=== PATIENT | female | born 1950 | race Caucasian/White ===

== ENCOUNTER → 2018-06-08 09:36 | Outpatient (CLI) | payer OTHER, SELFPAY | PROVIDERS: Visit Provider Internal Medicine | DX: Z13.820 Encounter for screening for osteoporosis (principal); Z78.0 Asymptomatic menopausal state | CPT/HCPCS: 77080 ==

== ENCOUNTER → 2019-02-11 13:06 | Outpatient (ROUT) | payer OTHER, SELFPAY ==
[2019-02-11 13:44] LABS: Alanine Aminotransferase 27 IU/L (<35); Albumin 4.5 g/dL (3.5-5.0); Albumin Globulin Ratio 1.4 (1.0-2.8); Alkaline Phosphatase 56 U/L (38-126); Aspartate Aminotransferase 32 IU/L (14-36); BUN Creatinine Ratio 28.3 (6-22); Bilirubin Total 0.9 mg/dL (0.2-1.3); Blood Urea Nitrogen 17 mg/dL (7-17); Calcium 9.4 mg/dL (8.4-10.2); Carbon Dioxide 29 mmol/L (22-32); Chloride 98 mmol/L (98-107); Cholesterol 199 mg/dL (140-199); Estimated Glomerular Filt Rate > 60.0 mL/min (>60); Globulin 3.3 g/dL (1.7-4.1); Glucose 95 mg/dL (80-110); HDL Cholesterol 49 mg/dL (40-60); HEMOLYSIS 16 (0-50); LDL Cholesterol Calculated 131 mg/dL (<100); Potassium 4.2 mmol/L (3.4-5.1); Sodium 136 mmol/L (137-145); Total Protein 7.8 g/dL (6.3-8.2); Triglycerides 95 mg/dL (35-150)
== END ==
PROVIDERS: Visit Provider Internal Medicine
DX: Z13.220 Encounter for screening for lipoid disorders (principal); I10 Essential (primary) hypertension
CPT/HCPCS: 80053; 80061

== ENCOUNTER → 2019-07-28 07:02 | Outpatient (CLI) | payer MEDICARE, SELFPAY ==
[2019-07-28 08:38] LABS: Alanine Aminotransferase 41 IU/L (<35); Aspartate Aminotransferase 45 IU/L (14-36); Cholesterol 172 mg/dL (140-199); HDL Cholesterol 60 mg/dL (40-60); LDL Cholesterol Calculated 97 mg/dL (<100); Triglycerides 77 mg/dL (35-150)
[2019-07-28 17:38] LABS: Hep C Virus Ab w/Reflex Quant NEGATIVE s/c (NEGATIVE)
== END ==
PROVIDERS: PCP Internal Medicine; Referring Provider Internal Medicine; Visit Provider Internal Medicine
DX: Z11.59 Encounter for screening for other viral diseases (principal); E78.5 Hyperlipidemia, unspecified
CPT/HCPCS: 36415; 80061; 84450; 84460; 86803

== ENCOUNTER 2020-09-06 08:53 | Inpatient (IN) | payer MEDICARE, OTHER, SELFPAY ==
[2020-09-06] VITALS (10 sets, daily range): BP systolic 107–190; BP diastolic 58–92; PULSE 59–64; RESP 16–41; TEMP 36.5–37.1; O2SAT 91–100; BMI 25.7
--- NOTE | 2020-09-06 09:18 | ED_ITS ---
HPI - Syncope General Chief Complaint: Syncope Stated Complaint: low potassium - sent by doc Time Seen by Provider: 09/06/20 09:07 Source: patient and family Mode of arrival: Ambulatory Limitations: no limitations History of Present Illness HPI narrative: This is a 70-year-old female comes emergency department with complaint of low potassium. She was told her number is in the 120s which I suspect is her sodium level. After further discussion she may have had some electrolyte abnormalities in general. Patient states she has felt unwell for the past week. Thursday she had an episode where she felt very dizzy, she tried to get to her bed she did not quite make it and she sounds like she had a syncopal episode. Patient felt like she was going to pass out. She woke up on the ground. She states she had a small amount of blood on the back of her head. Patient states she has continued to have some lightheadedness and dizziness. She has checked her blood pressure several times and had systolics in the 80s at times and other times normal level blood pressure. Patient has just felt off and sort of fuzzy. Patient denies any headache or neck pain. She denies any chest pain or pressure, no shortness of breath. No active nausea but has had some intermittently. She denies any numbness, tingling or weakness that is new. She denies any new GI or urinary symptoms but has felt off balance and like it is difficult to walk. Patient states she has been hanging onto furniture and the jack. She does take medicine including lisinopril, hydrochlorothiazide, amlodipine, rosuvastatin, mirtazapine for PTSD and insomnia and Co Q10. Her primary care physician had her stop her HCTZ in her amlodipine and she did not take it last night. She has had history tonsillectomy, tubal ligation with no other surgeries. No tobacco, she drinks several alcoholic drinks nightly, no illicit. She has seasonal allergies but denies drug allergies. Dr. Aleah Diallo is her PCP. Related Data Home Medications Medication Instructions Recorded Confirmed fluticasone propionate 50 1 spray INTRANASAL DAILY PRN 09/06/20 09/06/20 mcg/actuation nasal spray,suspension (Flonase Allergy Relief) lisinopril 40 mg tablet 40 mg PO DAILY 09/06/20 09/06/20 mirtazapine 15 mg tablet 15 mg PO BEDTIME 09/06/20 09/06/20 rosuvastatin 5 mg tablet 5 mg PO BEDTIME 09/06/20 09/06/20 Allergies Allergy/AdvReac Type Severity Reaction Status Date / Time No Known Drug Allergies Allergy Verified 09/06/20 10:05 Review of Systems Review of Systems ROS Unobtainable: All systems reviewed & are unremarkable except as noted in HPI and below Patient History Medical History (Updated 09/06/20 @ 10:51 by Pam Lauren DO) Dyslipidemia Hypertension Insomnia PTSD (post-traumatic stress disorder) Surgical History (Updated 09/06/20 @ 09:25 by Pam Lauren DO) H/O tubal ligation History of tonsillectomy Social History household members: none Smoking Status: Never smoker Smoking Status: Never smoker alcohol intake frequency: 3 or more drinks per day Last Alcoholic Drink: last week Substance Use Type: does not use Exam Narrative Exam Narrative: GEN: well nourished, well appearing female, alert and oriented x 3, patient appears to be in mild distress. HEENT: Atraumatic except for small abrasion on the posterior scalp., pupils are equal round reactive to light, extraocular movements are intact, nares are clear, Throat is clear without any exudates, erythema, tonsillar enlargement or uvular deviation, no facial droop. HEART: Regular rate and rhythm without murmur, clicks, rubs. Pulses are equal in upper and lower extremities LUNGS:Lungs clear to auscultation, no wheezes, rales, crackles, chest moves symmetrically ABD:bowel sounds normal, soft, non-tender, no guarding, rebound, rigidity, no masses noted, no hepatosplenomegaly :No CVA tenderness MSCL: Non-tender, no muscle atrophy, muscles strength 5/5 upper and lower extremities, full range of motion, normal gait NEURO:CN 2-12 intact, sensation normal, reflexes 2/4 upper and lower extremities SKIN: Other than abrasion noted on posterior scalp. No other skin changes noted. Initial Vital Signs Initial Vital Signs: Vital Signs Temperature 98.5 F 09/06/20 10:00 Pulse Rate 61 09/06/20 10:00 Respiratory Rate 18 09/06/20 10:00 Blood Pressure 190/88 H 09/06/20 10:00 Pulse Oximetry 100 09/06/20 10:00 Course Orders Ordered: Acetaminophen (Acetaminophen 325 Mg Tablet) 650 mg PO Q6HR PRN PRN Reason: Fever/Mild Pain (1-3) Atorvastatin Calcium (Atorvastatin 20 Mg Tablet) 10 mg PO BEDTIME TONY Enoxaparin Sodium (Enoxaparin 40 Mg/0.4 Ml Syringe) 40 mg SUBCUT DAILY TONY Fluticasone Propionate (Fluticasone 120 [place]/16 Gm [place].Susp) 1 spray NASAL DAILY PRN PRN Reason: Allergy Symptoms Sodium Chloride (Normal Saline 0.9%) 1,000 mls @ 75 mls/hr IV CONT [facility] Last Admin: 09/06/20 17:32 Dose: 125 mls/hr Documented by: Infusion: 09/06/20 17:32 Dose: 125 mls/hr Documented by: Admin: 09/06/20 13:47 Dose: 125 mls/hr Documented by: MIREYA POTASSIUM CHLORIDE IN WATER (Potassium Cl 10 Meq/100 Ml Nicole) 10 meq in 100 mls @ 100 mls/hr IV Q1H [facility] Stop: 09/07/20 01:14 Mirtazapine (Mirtazapine 15 Mg Tablet) 15 mg PO BEDTIME TONY Naloxone HCl (Naloxone 0.4 Mg/Ml Vial) 0.2 mg IV Q2MIN PRN PRN Reason: Opiate Reversal Potassium Chloride (Potassium Chloride 20 Meq Tab) 40 meq PO TIDWM [facility] Last Admin: 09/06/20 16:43 Dose: 40 meq Documented by: RICH Discontinued Medications Sodium Chloride (Normal Saline 0.9%) 1,000 mls @ 150 mls/hr IV CONT [facility] Last Admin: 09/06/20 10:20 Dose: 150 mls/hr Documented by: [email or web address] POTASSIUM CHLORIDE IN WATER (Potassium Cl 10 Meq/100 Ml Nicole) 10 meq in 100 mls @ 100 mls/hr IV Q1H TONY Stop: 09/06/20 14:14 Last Admin: 09/06/20 16:44 Dose: 100 mls/hr Documented by: Infusion: 09/06/20 16:16 Dose: 100 mls/hr Documented by: Admin: 09/06/20 13:47 Dose: 100 mls/hr Documented by: Infusion: 09/06/20 12:51 Dose: 100 mls/hr Documented by: Admin: 09/06/20 11:51 Dose: 100 mls/hr Documented by: Infusion: 09/06/20 11:50 Dose: 0 mls/hr Documented by: Admin: 09/06/20 10:21 Dose: 100 mls/hr Documented by: HOMER Potassium Chloride (Potassium Chloride 20 Meq/15 Ml Udc) 40 meq PO NOW ONE Stop: 09/06/20 10:03 Last Admin: 09/06/20 10:21 Dose: 40 meq Documented by: HOMER Vital Signs Vital signs: Vital Signs - 8 hr 09/06/20 10:00 Temperature 98.5 F Pulse Rate 61 Respiratory Rate 18 Blood Pressure 190/88 H Pulse Oximetry 100 MDM - Syncope Lab Data Result diagrams: 09/06/20 09:19 09/06/20 16:09 Labs: Lab Results 09/06/20 09/06/20 09/06/20 Range/Units 09:19 09:19 09:19 WBC 4.4 L (4.5-11.0) X10^3/uL RBC 3.60 L (4.0-5.2) X10^6/uL Hgb 11.5 L (12.0-16.0) g/dL Hct 32.5 L (36-46) % MCV 90.2 (80-100) fL MCH 32.0 (26-34) PG MCHC 35.5 (30-36) % RDW 12.1 (11.6-14.8) % Plt Count 305 (150-400) X10^3/uL Neut % (Auto) 72.5 (50-75) % Lymph % (Auto) 15.1 L (25-40) % Lawrence % (Auto) 10.3 (3-14) % Eos % (Auto) 1.4 L (2-4) % Baso % (Auto) 0.7 (0-2) % Neut # (Auto) 3200 (8479-0972) /uL Lymph # (Auto) 700 L (8247-0496) /uL Lawrence # (Auto) 500 (0-900) /uL Eos # (Auto) 100 (0-450) /uL Baso # (Auto) 0 (0-100) /uL PT (10.1-12.7) SECONDS INR (0.9-1.3) APTT (26.4-36.2) SECONDS Sodium 123 L (137-145) mmol/L Potassium 2.4 L* (3.4-5.1) mmol/L Chloride 82 L (98-107) mmol/L Carbon Dioxide 31 (22-32) mmol/L BUN 25 H (7-17) mg/dL Creatinine 0.64 (0.52-1.04) mg/dL Estimated GFR > 60.0 (>60) mL/min BUN/Creatinine Ratio 39.1 H (6-22) Glucose 125 H (80-110) mg/dL Calcium 9.5 (8.4-10.2) mg/dL Magnesium 2.1 (1.6-2.3) mg/dL Total Bilirubin 0.6 (0.2-1.3) mg/dL AST 48 H (14-36) IU/L ALT 38 H (<35) IU/L Alkaline Phosphatase 64 (38-126) U/L Total Creatine Kinase 184 H (30-135) U/L CK-MB (CK-2) 5.02 H (<2.37) ng/mL CK-MB (CK-2) Rel Index 2.7 (1.5-5.0) % Troponin I < 0.012 (0.01-0.034) ng/mL NT-Pro-B Natriuret Pep 74 (<125) pg/mL Total Protein 9.1 H (6.3-8.2) g/dL Albumin 4.7 (3.5-5.0) g/dL Globulin 4.4 H (1.7-4.1) g/dL Albumin/Globulin Ratio 1.1 (1.0-2.8) TSH 1.08 (0.47-4.68) uIU/mL Ethyl Alcohol ( - 10) mg/dL SARS-CoV-2 (PCR) (Negative) 09/06/20 09/06/20 09/06/20 Range/Units 09:19 10:10 10:10 WBC (4.5-11.0) X10^3/uL RBC (4.0-5.2) X10^6/uL Hgb (12.0-16.0) g/dL Hct (36-46) % MCV (80-100) fL MCH (26-34) PG MCHC (30-36) % RDW (11.6-14.8) % Plt Count (150-400) X10^3/uL Neut % (Auto) (50-75) % Lymph % (Auto) (25-40) % Lawrence % (Auto) (3-14) % Eos % (Auto) (2-4) % Baso % (Auto) (0-2) % Neut # (Auto) (5453-6283) /uL Lymph # (Auto) (5145-8636) /uL Lawrence # (Auto) (0-900) /uL Eos # (Auto) (0-450) /uL Baso # (Auto) (0-100) /uL PT 12.0 (10.1-12.7) SECONDS INR 1.1 (0.9-1.3) APTT 27 (26.4-36.2) SECONDS Sodium (137-145) mmol/L Potassium (3.4-5.1) mmol/L Chloride (98-107) mmol/L Carbon Dioxide (22-32) mmol/L BUN (7-17) mg/dL Creatinine (0.52-1.04) mg/dL Estimated GFR (>60) mL/min BUN/Creatinine Ratio (6-22) Glucose (80-110) mg/dL Calcium (8.4-10.2) mg/dL Magnesium (1.6-2.3) mg/dL Total Bilirubin (0.2-1.3) mg/dL AST (14-36) IU/L ALT (<35) IU/L Alkaline Phosphatase (38-126) U/L Total Creatine Kinase (30-135) U/L CK-MB (CK-2) (<2.37) ng/mL CK-MB (CK-2) Rel Index (1.5-5.0) % Troponin I (0.01-0.034) ng/mL NT-Pro-B Natriuret Pep (<125) pg/mL Total Protein (6.3-8.2) g/dL Albumin (3.5-5.0) g/dL Globulin (1.7-4.1) g/dL Albumin/Globulin Ratio (1.0-2.8) TSH (0.47-4.68) uIU/mL Ethyl Alcohol < 10 ( - 10) mg/dL SARS-CoV-2 (PCR) (Negative) 09/06/20 Range/Units 11:17 WBC (4.5-11.0) X10^3/uL RBC (4.0-5.2) X10^6/uL Hgb (12.0-16.0) g/dL Hct (36-46) % MCV (80-100) fL MCH (26-34) PG MCHC (30-36) % RDW (11.6-14.8) % Plt Count (150-400) X10^3/uL Neut % (Auto) (50-75) % Lymph % (Auto) (25-40) % Lawrence % (Auto) (3-14) % Eos % (Auto) (2-4) % Baso % (Auto) (0-2) % Neut # (Auto) (8805-8621) /uL Lymph # (Auto) (7420-0456) /uL Lawrence # (Auto) (0-900) /uL Eos # (Auto) (0-450) /uL Baso # (Auto) (0-100) /uL PT (10.1-12.7) SECONDS INR (0.9-1.3) APTT (26.4-36.2) SECONDS Sodium (137-145) mmol/L Potassium (3.4-5.1) mmol/L Chloride (98-107) mmol/L Carbon Dioxide (22-32) mmol/L BUN (7-17) mg/dL Creatinine (0.52-1.04) mg/dL Estimated GFR (>60) mL/min BUN/Creatinine Ratio (6-22) Glucose (80-110) mg/dL Calcium (8.4-10.2) mg/dL Magnesium (1.6-2.3) mg/dL Total Bilirubin (0.2-1.3) mg/dL AST (14-36) IU/L ALT (<35) IU/L Alkaline Phosphatase (38-126) U/L Total Creatine Kinase (30-135) U/L CK-MB (CK-2) (<2.37) ng/mL CK-MB (CK-2) Rel Index (1.5-5.0) % Troponin I (0.01-0.034) ng/mL NT-Pro-B Natriuret Pep (<125) pg/mL Total Protein (6.3-8.2) g/dL Albumin (3.5-5.0) g/dL Globulin (1.7-4.1) g/dL Albumin/Globulin Ratio (1.0-2.8) TSH (0.47-4.68) uIU/mL Ethyl Alcohol ( - 10) mg/dL SARS-CoV-2 (PCR) Negative (Negative) Urine Dip Bedside Urine Glucose Negative Bedside Urine Bilirubin - Negative Bedside Urine Ketone - Negative Urine Specific [place] 1.015 Bedside Urine Occult Blood - Negative Bedside Urine pH 6.5 Bedside Urine Protein - Negative Bedside Urine Urobilinogen - Negative Bedside Urine Nitrite - Negative Bedside Urine Leukocytes - Negative Esterase ECG Data Attestation: I personally reviewed and interpreted this ECG as follows: Prior ECG tracings: not available for review Interpretation: Sinus rhythm, incomplete right bundle branch. Rate of 61 OH 202, QRS of 106 and QTC of 446. No acute ST elevation or depression noted. MDM Narrative Medical decision making narrative: This is a 70-year-old female who comes to the emergency department with complaint of not feeling herself, patient was sent by her primary care for electrolyte abnormalities. Patient is found to have hyponatremia and hypokalemia here in the department. She does have an elevated BUN there may be an association with some dehydration but patient is also on lisinopril as well as hydrochlorothiazide which this may also be causing some of her symptoms. Patient case was discussed with Dr. Méndez who accepts for admission. Discharge Plan Departure Patient Disposition: Admitted As Inpatient Clinical Impression: Hyponatremia, Hypokalemia Admit Date/Time: 09/06/20 11:30 Admit Provider: Deejay Méndez
--- NOTE | 2020-09-06 09:20 | DI.RAD.S_ITS ---
PROCEDURE: XR CHEST 1V INDICATIONS: Syncope, electrolyte abnormalities TECHNIQUE: One view of the chest was acquired. COMPARISON: None. FINDINGS: Surgical changes and devices: None. Lungs and pleura: Lungs are clear. No pleural effusions or pneumothorax. Mediastinum: Mediastinal contours appear normal. Heart size is normal. Bones and chest wall: No suspicious bony lesions. Overlying soft tissues appear unremarkable. IMPRESSION: No acute cardiopulmonary process demonstrated radiographically. Dictated by: Demetrio Light M.D. on 09/06/2020 at 9:41 Approved by: Demetrio Light M.D. on 09/06/2020 at 9:44
[2020-09-06 09:28] LABS: Add Manual Diff / Slide Review NO; Basophils Absolute Auto 0 /uL (0-100); Basophils Percent Auto 0.7 % (0-2); Eosinophils Absolute Auto 100 /uL (0-450); Eosinophils Percent Auto 1.4 % (2-4); Hematocrit 32.5 % (36-46); Hemoglobin 11.5 g/dL (12.0-16.0); Lymphocytes Absolute Auto 700 /uL (1100-4500); Lymphocytes Percent Auto 15.1 % (25-40); Mean Corpuscular HGB Conc 35.5 % (30-36); Mean Corpuscular Volume 90.2 fL (80-100); Monocytes Absolute Auto 500 /uL (0-900); Monocytes Percent Auto 10.3 % (3-14); Neutrophils Absolute Auto 3200 /uL (1500-7000); Neutrophils Percent Auto 72.5 % (50-75); Platelet Count 305 X10^3/uL (150-400); Red Cell Distribution Width 12.1 % (11.6-14.8); White Blood Cell Count 4.4 X10^3/uL (4.5-11.0)
[2020-09-06 09:41] LABS: Alanine Aminotransferase 38 IU/L (<35); Albumin 4.7 g/dL (3.5-5.0); Albumin Globulin Ratio 1.1 (1.0-2.8); Alkaline Phosphatase 64 U/L (38-126); Aspartate Aminotransferase 48 IU/L (14-36); BUN Creatinine Ratio 39.1 (6-22); Bilirubin Total 0.6 mg/dL (0.2-1.3); Blood Urea Nitrogen 25 mg/dL (7-17); Calcium 9.5 mg/dL (8.4-10.2); Carbon Dioxide 31 mmol/L (22-32); Chloride 82 mmol/L (98-107); Creatine Kinase 184 U/L (30-135); Estimated Glomerular Filt Rate > 60.0 mL/min (>60); Ethanol (ETOH) < 10 mg/dL; Globulin 4.4 g/dL (1.7-4.1); Glucose 125 mg/dL (80-110); HEMOLYSIS 17 (0-50); Magnesium 2.1 mg/dL (1.6-2.3); Sodium 123 mmol/L (137-145); Total Protein 9.1 g/dL (6.3-8.2)
[2020-09-06 09:53] LABS: NT-proBNP (BNP-Adult 18+) 74 pg/mL (<125); Troponin I < 0.012 ng/mL (0.01-0.034)
[2020-09-06 09:56] LABS: CKMB % Relative Index 2.7 % (1.5-5.0); Creatine Kinase MB 5.02 ng/mL (<2.37); Potassium 2.4 mmol/L (3.4-5.1)
--- NOTE | 2020-09-06 10:04 | DI.CT.S_ITS ---
PROCEDURE: CT HEAD/BRAIN WO CON INDICATIONS: sent for electrolyte abnormalties TECHNIQUE: Noncontrast 4.5 mm thick angled axial sections acquired from the foramen magnum to the vertex, with coronal and sagittal reformats. For radiation dose reduction, the following was used: automated exposure control, adjustment of mA and/or kV according to patient size. COMPARISON: None. FINDINGS: Image quality: Excellent. CSF spaces: Basal cisterns are patent. No extra-axial fluid collections. The ventricles are symmetric in size and shape. Brain: No intracranial bleeds or masses. There is minimal cerebral volume loss for age, with resultant ventricular and sulcal prominence. There are mild periventricular and deep white matter chronic small vessel ischemic changes. There is intracranial internal carotid artery atherosclerosis. Skull and face: Calvarium and visualized facial bones appear intact, without suspicious lesions. Sinuses: Visualized sinuses and mastoids are clear. IMPRESSION: 1. No acute intracranial abnormalities. Dictated by: Fernando Martinez M.D. on 09/06/2020 at 10:00 Approved by: Fernando Martinez M.D. on 09/06/2020 at 10:02
[2020-09-06 10:16] LABS: Thyroid Stimulating Hormone 1.08 uIU/mL (0.47-4.68)
[2020-09-06] MEDS: SODIUM CHLORIDE 0.9% 1,000 ML 150 ML IV (10:20)
[2020-09-06] MEDS: POTASSIUM CHLORIDE IN WATER 10 MEQ/100 ML PIGGYBACK 100 MEQ IV ×6 (10:21→22:49)
[2020-09-06] MEDS: POTASSIUM CHLORIDE 20 MEQ/15 ML UDC 40 MEQ PO (10:21)
[2020-09-06 10:25] LABS: PTT Partial Thromboplastin Tim 27 SECONDS (26.4-36.2)
[2020-09-06 10:29] LABS: INR 1.1 (0.9-1.3)
[2020-09-06 12:20] LABS: COVID19 - ADMIT (NP swab/PCR) Negative (Negative)
--- NOTE | 2020-09-06 13:33 | DI.ECHO.S_ITS ---
[facility]---------+ [facility] +---------+ : : [address] : : : : [id number] : : : : Phone: [phone] Echocardiogram Report + + :Name: GELACIO MAST Study Date: 09/06/2020 Height: 65 in : :[facility] ReadingLocation: Weight: 153 lb : : Gender: Female BSA: 1.8 m2 : :: 1950 Age: 70 yrs BP: 159/84 mmHg: :Reason For Study: Syncope : :Ordering Physician: : :ALEXUS MANN Performed By: Efraín Steve : :Referring: ALEXUS MANN : + + Interpretation Summary The ejection fraction is estimated to be 65-70%. There is mild tricuspid regurgitation. The right ventricular systolic pressure is estimated to be at least 29 mmHg based on an estimated right atrial pressure of 3 mm Hg. Procedure: A two-dimensional transthoracic echocardiogram with color flow and Doppler was performed. The study quality was technically adequate. Comparison is made with the echocardiogram of 02/27/2015. Left Ventricle: The left ventricle is normal in size. Left ventricular systolic function is normal. The ejection fraction is estimated to be 65-70%. There are no focal wall motion abnormalities. Diastolic parameters suggest a relaxation abnormality of the left ventricle, consistent with probable normal filling pressures. Right Ventricle: The right ventricle is normal in size and function. Atria: The left atrium is moderately dilated. The right atrium is mildly dilated. There is no Doppler evidence for an interatrial shunt. Mitral Valve: The mitral valve is normal in structure and function. There is trace mitral regurgitation. Aortic Valve: The aortic valve is normal in structure and function. No aortic regurgitation is present. Tricuspid Valve: The tricuspid valve is normal in structure and function. There is mild tricuspid regurgitation. The right ventricular systolic pressure is estimated to be at least 29 mmHg based on an estimated right atrial pressure of 3 mm Hg. Pulmonic Valve: The pulmonic valve is not well seen, but is grossly normal. There is mild pulmonic regurgitation. Great Vessels: The aortic root is normal size. The ascending aorta is moderately enlarged. The IVC is of normal diameter and collapses greater than 50% with a sniff. This suggests a low right atrial pressure of 3 mm Hg. Pericardium/ Pleura There is no pericardial effusion. There is no pleural effusion. MMode/2D Measurements & Calculations LVIDd: 4.6 cm LVOT diam: 2.2 cm LVIDs: 2.6 cm Ao root diam: 3.1 cm FS: 42.4 % asc Aorta Diam: 4.1 cm IVSd: 1.2 cm LVPWd: 0.88 cm LV louis. diameter/BSA (cm/m^2): 2.6 LV sys. diameter/BSA (cm/m^2): 1.5 LA A2 area: 21.1 cm2 RA long axis: 5.1 cm LA A4 area: 23.2 cm2 RA area: 20.4 cm2 LA length (vol): 5.4 cm RA vol: 68.9 ml LA vol: 76.6 ml RA : 39.0 ml/m2 LA vol index: 43.4 ml/m2 RVD1 (basal): 3.0 cm TAPSE: 3.1 cm Doppler Measurements & Calculations Ao V2 max: 171.2 cm/sec LVOT Max Jeevan: 166.0 cm/sec Ao V2 mean: 116.9 cm/sec LV V1 max P.0 mmHg Ao max P.7 mmHg LV V1 VTI: 32.3 cm Ao mean P.3 mmHg ABHI(I,D): 3.5 cm2 Ao V2 VTI: 34.8 cm ABHI(V,D): 3.7 cm2 sev ratio: 0.93 ABHI indexed to BSA (cm^2/m^2): 2.0 MV E max jeevan: 48.1 cm/sec TR max jeevan: 256.1 cm/sec MV A max jeevan: 74.5 cm/sec TR max P.2 mmHg MV E/A: 0.65 PA V2 max: 118.3 cm/sec Med Peak E' Jeevan: 7.4 cm/sec PA V2 mean: 79.5 cm/sec E/E' med: 6.5 PA mean P.8 mmHg Lat Peak E' Jeevan: 8.5 cm/sec PA pr(Accel): 34.4 mmHg E/E' lat: 5.6 E/e' average: 6.1 MV dec time: 0.36 sec SV(LVOT): 122.9 ml Reading Physician:03:58 PM
[2020-09-06] MEDS: SODIUM CHLORIDE 0.9% 1,000 ML 125 ML IV ×2 (13:47→17:32)
--- NOTE | 2020-09-06 14:26 | PC.NURSE ---
Pt to room 205 via w/c from ER-able to transfer to bed independently. Pt denies pain-states she had been feeling weak and dizzy. Notified Pt that the bed alarm on for safety and assistance when getting up. Oriented Pt to room, call light, tv controls and bed controls. Pt is currently eating a sandwich and drinking water and denies needs at this time.
[2020-09-06 16:33] LABS: Blood Urea Nitrogen 20 mg/dL (7-17); Carbon Dioxide 31 mmol/L (22-32); Chloride 92 mmol/L (98-107); Estimated Glomerular Filt Rate > 60.0 mL/min (>60); Glucose 116 mg/dL (80-110); HEMOLYSIS < 15 (0-50); Sodium 129 mmol/L (137-145)
[2020-09-06 16:35] LABS: Potassium 2.6 mmol/L (3.4-5.1)
[2020-09-06] MEDS: POTASSIUM CHLORIDE 20 MEQ TAB 40 MEQ PO (16:43)
--- NOTE | 2020-09-06 18:32 | PC.NURSE ---
PRIOR TO ORAL AND #4 [facility] DRAWN K+2.6 MADE AWARE
--- NOTE | 2020-09-06 21:11 | P.HP_ITS ---
History of Present Illness History of Present Illness Date Patient Seen: 09/06/20 Time Patient Seen: 13:00 Chief complaint: low potassium - sent by doc Narrative: Ms Acevedo is a 70W with PMH HTN, HL who comes in to the hospital with abnormal labs. She notes that she has felt unwell for a week. She has noted that a couple days ago she possibly passed out. She has had low blood pressures intermittently. She has been fuzzy mentally, and generally weak. She feels imb alanced and that it is difficult to walk. Apparently she was just told to stop amlodipine and HCTZ for these issues. However, she was called in today for critically low electrolytes. She has 2-3 glasses of wine usually every day. She has also noticed a feeling of being flushed and a headache. In the ED, vitals were normal except for hypertension with blood pressure 190s/80s. Labs notable for WBC 4.4, hgb 11.5, sodium 123, K 2.4, chloride 82, creatinine 0.64. TSH ok, alcohol negative. She was given IV fluids and potassium supplementation. Head CT showed no acute process. She was admitted for further treatment and evaluation. Family history: Father-CHF Mother-DM Patient History Medical History Dyslipidemia Hypertension Insomnia PTSD (post-traumatic stress disorder) Surgical History H/O tubal ligation History of tonsillectomy Family & Social History Social History: household members none Prior Living Arrangements House Safety & Behavioral: Feels Safe in Current Yes Environment Been Physically Hurt or No Threatened By a Person Suicidal Ideation Description None Suicide Plan Description No Plan Tobacco & Substance use: Smoking Status Never smoker alcohol intake frequency 3 or more drinks per day Substance Use Type does not use Meds Home Medications and Allergies Home Medications Medication Instructions Recorded Confirmed Type fluticasone propionate 50 1 spray INTRANASAL DAILY PRN 09/06/20 09/06/20 History mcg/actuation nasal spray,suspension (Flonase Allergy Relief) lisinopril 40 mg tablet 40 mg PO DAILY 09/06/20 09/06/20 History mirtazapine 15 mg tablet 15 mg PO BEDTIME 09/06/20 09/06/20 History rosuvastatin 5 mg tablet 5 mg PO BEDTIME 09/06/20 09/06/20 History Allergies Allergy/AdvReac Type Severity Reaction Status Date / Time No Known Drug Allergies Allergy Verified 09/06/20 10:05 Review of Systems Review of Systems Narrative: 14 systems reviewed and negative aside from what is noted in HPI Exam Vital Signs (past 8 hours): - 09/06/20 13:15 09/06/20 14:32 09/06/20 15:46 Temperature 98.7 F 98.2 F Pulse Rate 62 64 60 Respiratory Rate 18 16 20 Blood Pressure 142/78 H 159/84 H 107/58 L Pulse Oximetry 99 99 91 09/06/20 19:29 Temperature 97.7 F Pulse Rate 63 Respiratory Rate 18 Blood Pressure 116/67 Pulse Oximetry 97 Oxygen Delivery Method Room Air Oxygen Flow Rate 0 Narrative Exam Narrative: GEN: no acute distress, awake and alert, but mildly confused HEENT: dry mucous membranes, PERRL CV: regular rate and rhythm with no mumurs PULM: clear bilaterally, no wheezes, rhonchi, rales ABD: soft, nontender, nondistended, no organomegaly, normal bowel sounds EXT: warm and well perfused with no edema NEURO: AAOx3, moving all extremities, slight slurred speech, tangential thought SKIN: no rashes noted PSYCH: pleasant Objective Labs Result Diagrams: 09/06/20 09:19 09/06/20 16:09 Labs: Laboratory Results - last 24 hr 09/06/20 09/06/20 09/06/20 09:19 09:19 09:19 WBC 4.4 L RBC 3.60 L Hgb 11.5 L Hct 32.5 L MCV 90.2 MCH 32.0 MCHC 35.5 RDW 12.1 Plt Count 305 Neut % (Auto) 72.5 Lymph % (Auto) 15.1 L Mcdonald % (Auto) 10.3 Eos % (Auto) 1.4 L Baso % (Auto) 0.7 Neut # (Auto) 3200 Lymph # (Auto) 700 L Mcdonald # (Auto) 500 Eos # (Auto) 100 Baso # (Auto) 0 PT INR APTT Sodium 123 L Potassium 2.4 L* Chloride 82 L Carbon Dioxide 31 BUN 25 H Creatinine 0.64 Estimated GFR > 60.0 BUN/Creatinine Ratio 39.1 H Glucose 125 H Calcium 9.5 Magnesium 2.1 Total Bilirubin 0.6 AST 48 H ALT 38 H Alkaline Phosphatase 64 Total Creatine Kinase 184 H CK-MB (CK-2) 5.02 H CK-MB (CK-2) Rel Index 2.7 Troponin I < 0.012 NT-Pro-B Natriuret Pep 74 Total Protein 9.1 H Albumin 4.7 Globulin 4.4 H Albumin/Globulin Ratio 1.1 TSH 1.08 Ethyl Alcohol SARS-CoV-2 (PCR) 09/06/20 09/06/20 09/06/20 09:19 10:10 10:10 WBC RBC Hgb Hct MCV MCH MCHC RDW Plt Count Neut % (Auto) Lymph % (Auto) Mcdonald % (Auto) Eos % (Auto) Baso % (Auto) Neut # (Auto) Lymph # (Auto) Mcdonald # (Auto) Eos # (Auto) Baso # (Auto) PT 12.0 INR 1.1 APTT 27 Sodium Potassium Chloride Carbon Dioxide BUN Creatinine Estimated GFR BUN/Creatinine Ratio Glucose Calcium Magnesium Total Bilirubin AST ALT Alkaline Phosphatase Total Creatine Kinase CK-MB (CK-2) CK-MB (CK-2) Rel Index Troponin I NT-Pro-B Natriuret Pep Total Protein Albumin Globulin Albumin/Globulin Ratio TSH Ethyl Alcohol < 10 SARS-CoV-2 (PCR) 09/06/20 09/06/20 11:17 16:09 WBC RBC Hgb Hct MCV MCH MCHC RDW Plt Count Neut % (Auto) Lymph % (Auto) Mcdonald % (Auto) Eos % (Auto) Baso % (Auto) Neut # (Auto) Lymph # (Auto) Mcdonald # (Auto) Eos # (Auto) Baso # (Auto) PT INR APTT Sodium 129 L Potassium 2.6 L* Chloride 92 L Carbon Dioxide 31 BUN 20 H Creatinine 0.69 Estimated GFR > 60.0 BUN/Creatinine Ratio 29.0 H Glucose 116 H Calcium 9.0 Magnesium Total Bilirubin AST ALT Alkaline Phosphatase Total Creatine Kinase CK-MB (CK-2) CK-MB (CK-2) Rel Index Troponin I NT-Pro-B Natriuret Pep Total Protein Albumin Globulin Albumin/Globulin Ratio TSH Ethyl Alcohol SARS-CoV-2 (PCR) Negative Assessment & Plan Assessment & Plan narrative: Ms. Acevedo is a 70W who comes in with metabolic encephalopathy likely secondary to electrolyte derangement from hypovolemia and HCTZ. 1. Metabolic encephalopathy, acute from hypovolemic hyponatremia, from HCTZ -etiology is likely from moderate hyponatremia -HCTZ stopped -given fluid resuscitation in ED -NA improved from 123->129, will slow IVF to 50cc/hr -head CT shows no acute process -no evidence of infection currently with negative cxray and UA -if not improving mental status would consider MRI, or further workup for infection 2. Hypokalemia, acute sypmtomatic -likely secondary to HCTZ -stopped HCTZ -getting potassium repletion above with oral and K-riders -check potassium daily 3. Syncope, acute -likely secondary to hypovolemia -rule out cardiac cause with ECHO 4. Hypertension -hold antihypertensives for now 5. Hyperlipidemia -continue statin IVF: normal saline DVT ppx: lovenox sc CODE: FUll, proxy is leti Putnam VTE Deep Vein Thrombosis/Pulmonary Embolism Present on Admission: No MIPS - Admit I confirm the patient?s Advance Care Plan is present, Code status is documented, Surrogate decision maker is in patient?s record [If Yes, STOP here]: Yes
[2020-09-06] MEDS: MIRTAZAPINE 15 MG TABLET PO (21:48)
[2020-09-07] MEDS: POTASSIUM CHLORIDE IN WATER 10 MEQ/100 ML PIGGYBACK 100 MEQ IV (00:03)
[2020-09-07 00:10] VITALS: BP 103/56; PULSE 59; RESP 18; TEMP 36.7; O2SAT 97
[2020-09-07] MEDS: POTASSIUM CHLORIDE IN WATER 10 MEQ/100 ML PIGGYBACK 75 MEQ IV (01:37)
[2020-09-07 03:45] VITALS: BP 96/63; PULSE 58; RESP 18; TEMP 36.8; O2SAT 94
[2020-09-07] MEDS: SODIUM CHLORIDE 0.9% 1,000 ML 75 ML IV (05:27)
[2020-09-07 07:00] VITALS: BP 115/68; PULSE 69; RESP 16; TEMP 36.6; O2SAT 97
--- NOTE | 2020-09-07 07:01 | P.DS_ITS ---
History of Present Illness History of Present Illness Chief complaint: low potassium - sent by doc Narrative: Ms Acevedo is a 70W with PMH HTN, HL who comes in to the hospital with abnormal labs. She notes that she has felt unwell for a week. She has noted that a couple days ago she possibly passed out. She has had low blood pressures intermittently. She has been fuzzy mentally, and generally weak. She feels imba lanced and that it is difficult to walk. Apparently she was just told to stop amlodipine and HCTZ for these issues. However, she was called in today for critically low electrolytes. She has 2-3 glasses of wine usually every day. She has also noticed a feeling of being flushed and a headache. In the ED, vitals were normal except for hypertension with blood pressure 190s/80s. Labs notable for WBC 4.4, hgb 11.5, sodium 123, K 2.4, chloride 82, creatinine 0.64. TSH ok, alcohol negative. She was given IV fluids and potassium supplementation. Head CT showed no acute process. She was admitted for further treatment and evaluation. Family history: Father-CHF Mother-DM Discharge Providers Provider Date of admission: 09/07/20 11:00 Discharge Date: 09/07/20 Primary care physician: Aleah Diallo MD Discharge provider: Deejay Méndez MD Summary Hospital Course Discharge Diagnosis: 1. Acute Metabolic encephalopathy from hypovolemic hyponatremia from HCTZ 2. Hypokalemia 3. Syncope 4. Hypertension 5. Hyperlipidemia 6. Leukopenia Hospital Course: Ms. Acevedo was admitted with imbalance, confusion from hyponatremia with a sodium of 123, she had been taking HCTZ. This was discontinued on discharge. She had cramps and hypokalemia. These electrolytes were repleted and she felt improved. She improved more quickly than expected. She had no evidence of infection, CT head was negative for an acute process. She incidentally was noted to have mild leukopenia on her labs. This may be transient, but she should follow up with her PCP to make sure this resolves. She will hold her lisinopril until follow up with her PCP as she had borderline hypotension. Exam Vital Signs (past 8 hours): Oxygen Delivery Method Room Air Oxygen Flow Rate 0 Narrative Exam Narrative: GEN: no acute distress, awake and alert HEENT: moist mucous membranes, PERRL CV: regular rate and rhythm with no mumurs PULM: clear bilaterally, no wheezes, rhonchi, rales ABD: soft, nontender, nondistended, no organomegaly, normal bowel sounds EXT: warm and well perfused with no edema NEURO: AAOx3, moving all extremities, speech improved SKIN: no rashes noted PSYCH: pleasant Objective Labs Result Diagrams: 09/07/20 07:36 09/07/20 07:36 Labs: Laboratory Results - last 24 hr 09/07/20 09/07/20 07:36 07:36 WBC 2.8 L RBC 3.21 L Hgb 10.4 L Hct 29.5 L MCV 92.0 MCH 32.4 MCHC 35.3 RDW 12.2 Plt Count 251 Neut % (Auto) 59.5 Lymph % (Auto) 25.7 [place] % (Auto) 11.9 Eos % (Auto) 2.0 Baso % (Auto) 0.9 Neut # (Auto) 1700 Lymph # (Auto) 700 L [place] # (Auto) 300 Eos # (Auto) 100 Baso # (Auto) 0 Sodium 133 L Potassium 3.5 Chloride 104 Carbon Dioxide 25 BUN 19 H Creatinine 0.55 Estimated GFR > 60.0 BUN/Creatinine Ratio 34.5 H Glucose 109 Calcium 9.0 Magnesium 2.2 PFSH Medical History Dyslipidemia Hypertension Insomnia PTSD (post-traumatic stress disorder) Surgical History H/O tubal ligation History of tonsillectomy Social History household members: none Smoking Status: Never smoker Discharge Plan Discharge Plan Patient Disposition: Home Provider Discharge Comment: Ms. Acevedo was admitted with low sodium and low potassium. This is possibly related to a medication called hydrochlorothiazide. This can cause electrolyte problems. Please stop this medication. In addition your blood pressure was on the lower side, so hold off on taking your lisinopril until following up with your primary doctor. Also your white count was slightly low. This can sometimes happen briefly with illnesses. However, please follow up with your primary doctor to make sure this goes back to normal. Please follow with your doctor within 1 week. Discharge orders & Medications Prescriptions: Continued mirtazapine 15 mg tablet 15 mg PO BEDTIME RF: 0 fluticasone propionate [Flonase Allergy Relief] 50 mcg/actuation [place],Suspension 1 spray INTRANASAL DAILY PRN (Reason: Allergy Symptoms) RF: 0 rosuvastatin 5 mg tablet 5 mg PO BEDTIME RF: 0 Discontinued lisinopril 40 mg tablet 40 mg PO DAILY RF: 0 Follow up/Referrals: Aleah Diallo MD [Primary Care Provider] - Diet/Activity/Treatments Diet: Regular Visit Report/Discharge Packet Instructions: DI for Hypokalemia, DI for Hyponatremia Discharge Data Primary Care Provider: Aleah Diallo Quality VTE Deep Vein Thrombosis/Pulmonary Embolism Present on Admission: No MIPS - DC The patient has current or prior documentation of left ventricular ejection fraction (LVEF) less than 40%, or moderate or severely depressed left ventricular systolic function.: No A. The patient was prescribed or already taking an Angiotensin-Converting Enzyme (LLUVIA) Inhibitor, or Angiotensin Receptor Afia (ARB).: No
[2020-09-07 08:18] LABS: Add Manual Diff / Slide Review NO; Basophils Absolute Auto 0 /uL (0-100); Basophils Percent Auto 0.9 % (0-2); Eosinophils Absolute Auto 100 /uL (0-450); Hematocrit 29.5 % (36-46); Hemoglobin 10.4 g/dL (12.0-16.0); Lymphocytes Absolute Auto 700 /uL (1100-4500); Lymphocytes Percent Auto 25.7 % (25-40); Mean Corpuscular HGB Conc 35.3 % (30-36); Mean Corpuscular Hemoglobin 32.4 PG (26-34); Monocytes Absolute Auto 300 /uL (0-900); Monocytes Percent Auto 11.9 % (3-14); Neutrophils Absolute Auto 1700 /uL (1500-7000); Neutrophils Percent Auto 59.5 % (50-75); Platelet Count 251 X10^3/uL (150-400); Red Blood Cell Count 3.21 X10^6/uL (4.0-5.2); Red Cell Distribution Width 12.2 % (11.6-14.8); White Blood Cell Count 2.8 X10^3/uL (4.5-11.0)
[2020-09-07 08:36] LABS: BUN Creatinine Ratio 34.5 (6-22); Blood Urea Nitrogen 19 mg/dL (7-17); Carbon Dioxide 25 mmol/L (22-32); Chloride 104 mmol/L (98-107); Estimated Glomerular Filt Rate > 60.0 mL/min (>60); Glucose 109 mg/dL (80-110); HEMOLYSIS < 15 (0-50); Magnesium 2.2 mg/dL (1.6-2.3); Potassium 3.5 mmol/L (3.4-5.1); Sodium 133 mmol/L (137-145)
[2020-09-07] MEDS: ACETAMINOPHEN 325 MG TABLET 650 MG PO (08:59)
[2020-09-07] MEDS: POTASSIUM CHLORIDE 20 MEQ TAB 40 MEQ PO (09:00)
[2020-09-07] MEDS: ENOXAPARIN 40 MG/0.4 ML SYRINGE SUBCUT (09:00)
--- NOTE | 2020-09-07 13:02 | PC.NURSE ---
Pt VSS, afebrile on RA. Alert and pleasant this a.m. ambulating around in room, denies symptoms. Mild back pain reported 3/10 improved she reported with tylenol. Pt cleared by MD for discharge today. Her daughter arrived to escort patient home. Pt acknowledged understanding of discharge instructions, medications, diet and follow up instructions. RELOCATION MANAGER escorted patient via w/ch with all of her belongings to private vehicle with her daughter.
--- NOTE | 2020-09-07 15:36 | CM.DANOTE ---
Discharge Planning/Care Management DCP: assessment: Case received and discussed in Team Rounds. Pt admitted yesterday to care of hospitalist team. Dr. Méndez stated that pt would likely d/c later today. A check in now shows that pt was ok'd for d/c and was taken home by her daughter about 1300 with plan for followup with PCP Aleah Diallo in clinic. Admission status: OBS with a change to INPT as of 09/07: confirmed by UR RN Jean. Payer: Medicare and [employer] Advanced directive, confirm from FAMILY Start: 09/06/20 14:21 Freq: Q24H Status: Discharge Protocol: Document 09/06/20 14:21 CM (Rec: 09/06/20 14:22 CM [id number]) Advance Directive, confirm on record Time 14:22 Person contacted pt Copy received No Time 14:22 Advanced directive available on record No CM Discharge Assessment Start: 09/07/20 15:25 Freq: Status: Discharge Protocol: Document 09/07/20 15:26 ITV (Rec: 09/07/20 15:26 ITV [id number]) Discharge Planning Assessment Advance Directives? Yes Advance Directives on File No History Provided By Patient,Medical Record Prior Living Arrangements House
== END 2020-09-07 12:45 | disposition home or self-care (01) | DRG 640 ==
LOC: ED 10:51 → AC 14:24
PROVIDERS: Nurse Practitioner Family; Admitting Provider Internal Medicine; Emergency Provider Emergency Medicine; PCP Internal Medicine; Referring Provider Emergency Medicine; Visit Provider Internal Medicine
DX: E86.1 Hypovolemia (principal); G93.41 Metabolic encephalopathy; E87.6 Hypokalemia; E87.1 Hypo-osmolality and hyponatremia; R55 Syncope and collapse; I10 Essential (primary) hypertension; E78.5 Hyperlipidemia, unspecified; T50.2X5A Adverse effect of carbonic-anhydrase inhibitors, benzothiadiazides and other diuretics, initial encounter; Z20.822 Contact with and (suspected) exposure to COVID-19
CPT/HCPCS: 36415; 70450; 71045; 80048; 80053; 80320; 81003; 82550; 82553; 83735; 83880; 84443; 84484; 85025; 85610; 85730; 87635; 93005; 93306; 96365; 96366; 99284; C9803; G0378; J1650